=== PATIENT | male | born 2000 | race Hispanic/Latino ===

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

== ENCOUNTER 2023-11-27 02:42 | Emergency (ER) | payer MEDICAID, OTHER ==
[~2023-11-27] VITALS: Ht 170.2 cm; Wt 98.4 kg
[2023-11-27] MEDS ORDERED: MAG-55 PO (03:20)
[2023-11-27] MEDS ORDERED: OMEP40CA21 PO (03:20)
[2023-11-27 03:39] LABS: APPEARANCE,URINE CLEAR (CLEAR); BILIRUBIN,URINE NEGATIVE (NEGATIVE); COLOR,URINE COLORLESS (YELLOW); GLUCOSE, URINE (UA) NEGATIVE (NEGATIVE); KETONES,URINE NEGATIVE (NEGATIVE); LEUKOCYTE ESTERASE ,URINE NEGATIVE Leu/uL (NEGATIVE); NITRATE,URINE NEGATIVE (NEGATIVE); OCCULT BLOOD,URINE NEGATIVE (NEGATIVE); PH,URINE 7.5 (5.0-8.0); PROTEIN,URINE NEGATIVE (NEGATIVE); UROBILINOGEN,URINE 0.2 mg/dL (0.2-1.0)
[2023-11-27 03:40] LABS: ADD UA MICROSCOPIC NO
[2023-11-27 03:46] LABS: BASOPHILS # (AUTO) 0.03 K/uL (0.00-0.20); BASOPHILS % (AUTO) 0.4 % (0.0-5.0); EOSINOPHILS # (AUTO) 0.09 K/uL (0.00-0.70); EOSINOPHILS % (AUTO) 1.3 % (0.0-8.0); HEMATOCRIT 46.1 % (42-54); IMMATURE GRANULOCYTE ABSOLUTE 0.02 K/uL (0-1); LYMPHOCYTES # (AUTO) 1.9 K/uL (1.0-4.8); LYMPHOCYTES % (AUTO) 27.8 % (21.0-51.0); MEAN CORPUSCULAR HEMOGLOBIN 29.7 pg (27.0-33.0); MEAN CORPUSCULAR HGB CONC 33.8 g/dL (32.0-36.0); MEAN CORPUSCULAR VOLUME 87.6 fL (79-99); MONOCYTES # (AUTO) 0.8 K/uL (0.1-1.0); MONOCYTES % (AUTO) 11.5 % (3.0-13.0); NEUTROPHILS % (AUTO) 58.7 % (40.0-77.0); PLATELET COUNT (AUTO) 263 K/uL (130-400); RED BLOOD CELL COUNT(AUTO) 5.26 MIL/uL (4.50-6.20); RED CELL DISTRIBUTION WIDTH 12.8 % (11.0-15.5); WHITE BLOOD COUNT (AUTO) 6.9 K/uL (4.8-10.8)
[2023-11-27 03:59] LABS: INR <= 0.93 (0.85-1.15); PROTHROMBIN TIME 10.3 SEC (9.6-11.6)
[2023-11-27 04:00] LABS: PARTIAL THROMBOPLASTIN TIME 30.8 SEC (26.3-35.5)
[2023-11-27 04:03] LABS: ALBUMIN 4.4 g/dL (3.5-5.0); BILIRUBIN,TOTAL 0.7 mg/dL (0.2-1.0); POTASSIUM 3.8 mmol/L (3.5-5.1); TOTAL PROTEIN, SERUM 7.7 g/dL (6.0-8.3)
[2023-11-27 04:14] LABS: B-TYPE NATRIURETIC PEPTIDE < 5 pg/mL (0-100)
[2023-11-27 04:47] VITALS: BP 144/72; PULSE 71; RESP 18; O2SAT 100
== END 2023-11-27 04:47 | disposition home or self-care (01) ==
LOC: EDH 02:42
DX: K27.9 Peptic ulcer, site unspecified, unspecified as acute or chronic, without hemorrhage or perforation (principal); Z79.899 Other long term (current) drug therapy
CPT/HCPCS: 36415; 71045; 80053; 81003; 82550; 83880; 84484; 85025; 85610; 85730; 93005

== ENCOUNTER 2024-09-23 06:42 | Emergency (ER) | payer SELFPAY ==
[~2024-09-23] VITALS: Ht 170.2 cm; Wt 101.7 kg
[~2024-09-23 06:42] MED LIST: MAG-55 PO; OMEP40CA21 PO
[2024-09-23 07:06] LABS: HEMATOCRIT 46.7 % (42-54); MEAN CORPUSCULAR HEMOGLOBIN 29.1 pg (27.0-33.0); MEAN CORPUSCULAR HGB CONC 32.8 g/dL (32.0-36.0); MEAN CORPUSCULAR VOLUME 88.8 fL (79-99); RED BLOOD CELL COUNT(AUTO) 5.26 MIL/uL (4.50-6.20); RED CELL DISTRIBUTION WIDTH 12.9 % (11.0-15.5); WHITE BLOOD COUNT (AUTO) 9.8 K/uL (4.8-10.8)
[2024-09-23] MEDS: ondanSETRON 4MG INJ IVP ONE (07:08)
[2024-09-23] MEDS: MAG/ALUM/SIMETH 30 ML UDCUP PO ONE (07:08)
[2024-09-23] MEDS: DICYCLOMINE HCL 10 MG/5 ML ML PO ONE (07:08)
[2024-09-23] MEDS: LIDOCAINE HCL 2% VISCOUS 15 ML UDCUP PO ONE (07:08)
[2024-09-23] MEDS: PANTOPrazole 40 MG/VIAL IVP ONE (07:09)
[2024-09-23] MEDS: morPHINE 2 MG SYG IVP ONE (07:09)
[2024-09-23 07:10] VITALS: TEMP 98.8
[2024-09-23 07:19] LABS: CREATININE 0.9 mg/dL (0.5-1.3); POTASSIUM 3.3 mmol/L (3.5-5.1)
[2024-09-23 07:30] LABS: ALBUMIN 3.7 g/dL (3.5-5.0); BILIRUBIN,DIRECT 0.2 mg/dL (0.0-0.3); BILIRUBIN,TOTAL 0.6 mg/dL (0.2-1.0); TOTAL PROTEIN, SERUM 7.5 g/dL (6.0-8.3)
--- NOTE | 2024-09-23 07:38 | ERN ---
General Chief Complaint: Abdominal Pain Stated Complaint: EPIGASTRIC ABDOMINAL PAIN Time Seen by MD: 07:08 Source: patient, family History of Present Illness Initial Comments Patient is a 24-year-old male, coming in complaining of epigastric pain. Patient states that the discomfort began four days ago. This is a states that today the pain improved but still has a discomfort decided to come in to be evaluated. Allergies: Coded Allergies: No Known Allergies (Unverified Allergy, Unknown, 05/04/19) Home Meds Active Scripts Omeprazole (Omeprazole) 40 Mg Capsule.dr, 40 MG PO DAILY, #30 CAP Prov:CHARLEY MARIN MD 11/27/23 Mag Hydrox/Al Hydrox/Simeth (Maalox Maximum Strength Susp) 400 Mg-400 Mg-40 Mg/5 Ml Oral.susp, 20 ML PO QID, #250 ML Prov:CHARLEY MARIN MD 11/27/23 Past Medical History Past Medical History: No Pertinent History Medical History Other: GASTRITIS Past Surgical History: None Family History Family History: HTN Social History Social History: Negative, Lives with family ROS Dictation CONSTITUTIONAL: No chills, no fever, no weakness, no diaphoresis, no malaise. HEAD/FACE: No signs of trauma. EENT: No eye pain, no blurred vision, no tearing, no double vision, no ear pain, no ear discharge, no nose pain, no nasal congestion, no throat pain, no throat swelling, no mouth pain. RESPIRATORY: No cough, no orthopnea, no SOB, no stridor, no wheezing. CARDIOVASCULAR: No chest pain, no edema, no palpitations, no syncope. GASTROINTESTINAL/ABDOMINAL: abdominal pain, no constipation, no diarrhea, no nausea, no vomiting. GENITOURINARY: No abnormal discharge, no dysuria, no frequent urination, no hematuria. No complaints of pain in the genitals. MUSCULOSKELETAL: No back pain, no gout, no joint pain, no joint swelling, no muscle pain, no muscle stiffness, no neck pain. INTEGUMENTARY: No change in color, no change in hair/nails, no dryness, no lesion, no lumps, no rash. NEUROLOGICAL/PSYCH: No anxiety, not depressed, no emotional problem, no headache, no numbness, no pre-existing deficit, no history of seizures, no tremors, no weakness. HEMATOLOGIC/LYMPHATIC: Not anemic, no history of blood clots, no apparent bleeding, no bruising, glands not swollen. All Systems Negative, Except as Noted. Physical Exam Physical Exam Dictation VITAL SIGNS: Reviewed. GENERAL APPEARANCE: Alert, oriented x3, no acute distress, obese. HEAD AND FACE: Non-traumatic. EYES: PERRL, pink conjunctivas, eyelid no trauma, anterior chamber clear. EARS: Pinnas intact and no signs of trauma or erythema. Ear canals clear and no discharge. TMs no erythema. NOSE: No discharge, no bleeding. OROPHARYNX: Mouth normal, teeth no caries, tongue pink. Pharynx clear, no erythema. Tonsils no exudates, no abscesses noted. Mucous membrane moist. NECK: Supple, non-tender, no thyromegaly, no masses, no JVD, no bruits. BREAST: Deferred. CHEST: No tenderness, no crepitus, no paradoxical movement, no retractions. LUNGS: Clear, well-ventilated, symmetric, no rales, no wheezing, no rhonchi, no stridor, good breath sounds bilaterally. HEART: Regular rate, regular rhythm, no murmur, no gallops. VASCULAR: No peripheral edema. ABDOMEN: Soft, positive bowel sounds, nondistended, no guarding, epigastric tenderness on palpation, no rebound, no masses no hepatomegaly, no splenomegaly, no Womack's sign, no hernias. RECTAL: Deferred. GENITAL: Deferred. NEUROLOGICAL: Normal speech, gross motor function intact, gross sensory function intact. MUSCULOSKELETAL: Neck nontender, full range of motion, back nontender, full range of motion. EXTREMITIES: Nontender, full range of motion. SKIN: Color pink, dry, no turgor, no rash, no lacerations, no abrasions, no contusions. LYMPHATICS: Deferred. Results Laboratory and Microbiology Lab and Micro Result Laboratory Tests Test 09/23/24 06:55 White Blood Count 9.8 K/uL (4.8-10.8) Red Blood Count 5.26 MIL/uL (4.50-6.20) Hemoglobin 15.3 g/dL (14.0-18.0) Hematocrit 46.7 % (42-54) Mean Corpuscular Volume 88.8 fL (79-99) Mean Corpuscular Hemoglobin 29.1 pg (27.0-33.0) Mean Corpuscular Hemoglobin Concent 32.8 g/dL (32.0-36.0) Red Cell Distribution Width 12.9 % (11.0-15.5) Platelet Count 237 K/uL (130-400) Mean Platelet Volume 10.3 fL (7.5-10.5) Nucleated Red Blood Cells 0.0 % (0.0-0.19) Sodium Level 142 mmol/L (136-145) Potassium Level 3.3 mmol/L (3.5-5.1) L Chloride Level 103 mmol/L (101-111) Carbon Dioxide Level 32 mmol/L (21-32) Blood Urea Nitrogen 14 mg/dL (7-18) Creatinine 0.9 mg/dL (0.5-1.3) Glomerular Filtration Rate Calc 123 mL/min (>90) Random Glucose 97 mg/dL (70-105) Total Calcium 8.7 mg/dL (8.5-10.1) Total Bilirubin 0.6 mg/dL (0.2-1.0) Direct Bilirubin 0.2 mg/dL (0.0-0.3) Aspartate Amino Transf (AST/SGOT) 39 U/L (10-37) H Alanine Aminotransferase (ALT/SGPT) 93 U/L (12-78) H Alkaline Phosphatase 114 U/L (50-136) Total Protein 7.5 g/dL (6.0-8.3) Albumin 3.7 g/dL (3.5-5.0) Lipase 48 U/L (16-77) Urine Opiates Screen NEGATIVE (NEGATIVE) Urine Barbiturates Screen NEGATIVE (NEGATIVE) Urine Phencyclidine Screen NEGATIVE (NEGATIVE) Urine Amphetamines Screen NEGATIVE (NEGATIVE) Urine Benzodiazepines Screen NEGATIVE (NEGATIVE) Urine Cocaine Screen NEGATIVE (NEGATIVE) Urine Marijuana (THC) Screen NEGATIVE (NEGATIVE) Labs Reviewed?: Yes MDM MDM: Differential diagnosis: Gastritis, GERD, alcohol abuse, Patient is a 24-year-old male coming in to be evaluated for abdominal discomfort. Patient states that the pain began a couple of days ago. Patient does admit to drinking alcohol socially. Laboratory workup negative for acute findings. Mild elevation of liver enzymes counseled patient into avoiding alcohol abuse as this could damage his liver. Patient took a device states he will follow up with the recommendation. Patient will be discharged in stable condition with a diagnosis of gastritis. PPIs with the provided for symptomatic relief. ED Course Orders Procedure Category Date Status Time Morphine 2mg Syg PHA 09/23/24 Complete (Morphine 2mg Syg) 07:00 Ondansetron 4mg Inj PHA 09/23/24 Complete (Zofran 4mg Inj) 07:00 Lidocaine Hcl 2% PHA 09/23/24 Complete Viscous (Lidocaine Hcl 07:00 Mag/Alum/Simeth 30ml PHA 09/23/24 Complete (Maalox Plus 30ml) 07:00 Pantoprazole 40mg Inj PHA 09/23/24 Complete (Protonix 40mg Inj 07:00 Dicyclomine Hcl PHA 09/23/24 Complete (Bentyl 10mg/5ml 07:00 Cbc Without LAB 09/23/24 Complete Differential 06:56 Basic Metabolic Panel LAB 09/23/24 Complete 06:56 Urinalysis Profile LAB 09/23/24 In Process 06:56 Drug Screen Urine LAB 09/23/24 Complete 06:56 Lipase LAB 09/23/24 Complete 07:10 Hepatic Function Panel LAB 09/23/24 Complete 07:10 Potassium Bicarb/Cit PHA 09/23/24 Complete Ac 25meq (K-Lyte Ta 08:00 Current Medications Medications (Trade) Dose Ordered Sig/Carol Route PRN Reason Start Time Stop Time Status Last Admin Dose Admin Al Hydroxide/Mg Hydroxide (MAALox PLUS 30ML) 30 ml ONCE ONCE PO 09/23/24 07:00 09/23/24 07:01 DC 09/23/24 07:08 Dicyclomine HCl (Bentyl 10mg/5ml Syrup) 10 mg ONCE ONCE PO 09/23/24 07:00 09/23/24 07:01 DC 09/23/24 07:08 Lidocaine HCl (Lidocaine HCl 2% Viscous) 10 ml ONCE ONCE PO 09/23/24 07:00 09/23/24 07:01 DC 09/23/24 07:08 Morphine Sulfate (morPHINE 2MG SYG) 2 mg ONCE ONCE IVP 09/23/24 07:00 09/23/24 07:01 DC Ondansetron HCl (zoFRAN 4MG INJ) 4 mg ONCE ONCE IVP 09/23/24 07:00 09/23/24 07:01 DC Pantoprazole Sodium (PROTonix 40MG INJ) 40 mg ONCE ONCE IVP 09/23/24 07:00 09/23/24 07:01 DC 09/23/24 07:09 Potassium Bicarbonate (K-Lyte Tablet Eff 25 Meq Tablet.eff) 25 meq ONCE ONCE PO 09/23/24 08:00 09/23/24 08:01 DC 09/23/24 07:44 Vital Signs Date Time Temp Pulse Resp B/P (MAP) Pulse Ox O2 Delivery O2 Flow Rate FiO2 09/23/24 08:13 71 16 114/68 100 Room Air* 0 21 09/23/24 07:10 98.8 73 14 119/74 100 Room Air* 0 21 09/23/24 07:00 98.8 78 18 110/65 99 Room Air* 0 21 09/23/24 06:44 98.2 74 16 145/49 98 Room Air 0 DX & DISP Disposition: Discharge Departure Impression: Primary Impression: History of peptic ulcer disease Additional Impression: Gastritis Condition: Stable Scripts Pantoprazole Sodium (Protonix) 40 Mg Ectab 1 TAB PO DAILY for 30 Days, #30 TAB 0 Refills Prov: MICHELE MCKAY MD 09/23/24 Additional Instructions: FOLLOW-UP WITH PRIMARY CARE PROVIDER IN 1 TO 2 DAYS. TAKE MEDICATIONS DIRECTED HERE IN THE EMERGENCY ROOM. OKAY TO CONTINUE HOME MEDICATIONS UNLESS OTHERWISE DISCUSSED DURING YOUR VISIT IN THE EMERGENCY ROOM TODAY. RETURN TO YOUR NEAREST EMERGENCY ROOM IF SYMPTOMS WORSEN OR IF THERE IS NO IMPROVEMENT. CALL 911 IF YOU NEED IMMEDIATE ASSISTANCE. TAKE TYLENOL [id number] NEEDED AND IF NO CONTRAINDICATIONS ARE PRESENT. INCREASE ORAL HYDRATION. A WOUND CULTURE OR URINE CULTURE WAS ORDERED HERE IN THE EMERGENCY ROOM DEPARTMENT PLEASE FOLLOW-UP WITH PRIMARY CARE PROVIDER AND ADVISE THEM TO GET REPEAT PORTS FROM OUR FACILITY. IF YOU HAD ANY FAVIOLA WRAP/SPLINTS THAT WERE APPLIED HERE, PLEASE DO NOT REMOVE THEM UNTIL YOU SEE YOUR PRIMARY CARE OR SPECIALTY. Referrals: Referrals: SELF,REFERRAL (PCP) JAKI MARY MD Time of Disposition: 08:40 MICHELE MCKAY MD Sep 23, 2024 07:38
[2024-09-23] MEDS: PoTASSium BIcarbonate/CIT AC 25 MEQ TABLET.EFF PO ONE (07:44)
[2024-09-23 08:13] VITALS: BP 114/68; PULSE 71; RESP 16; O2SAT 100
[2024-09-23 08:28] LABS: APPEARANCE,URINE CLEAR (CLEAR); BILIRUBIN,URINE NEGATIVE (NEGATIVE); COLOR,URINE LIGHT-YELLOW (YELLOW); GLUCOSE, URINE (UA) NEGATIVE (NEGATIVE); KETONES,URINE NEGATIVE (NEGATIVE); LEUKOCYTE ESTERASE ,URINE NEGATIVE Leu/uL (NEGATIVE); NITRATE,URINE NEGATIVE (NEGATIVE); OCCULT BLOOD,URINE NEGATIVE (NEGATIVE); PROTEIN,URINE NEGATIVE (NEGATIVE); UROBILINOGEN,URINE 0.2 mg/dL (0.2-1.0)
[2024-09-23 08:36] LABS: AMPHET/METH SCREEN,URINE NEGATIVE (NEGATIVE); BARBITURATE SCREEN, URINE NEGATIVE (NEGATIVE); BENZODIAZEPINES SCREEN,URINE NEGATIVE (NEGATIVE); CANNABINOID SCREEN,URINE NEGATIVE (NEGATIVE); COCAINE SCREEN,URINE NEGATIVE (NEGATIVE); OPIATE SCREEN,URINE NEGATIVE (NEGATIVE); PHENCYCLIDINE SCREEN,URINE NEGATIVE (NEGATIVE)
[2024-09-23] MEDS ORDERED: PANT40TA55 PO (08:40)
[2024-09-23 09:17] LABS: ADD UA MICROSCOPIC NO
== END 2024-09-23 08:45 | disposition home or self-care (01) ==
LOC: EDH 06:42
DX: K29.70 Gastritis, unspecified, without bleeding (principal); Z79.899 Other long term (current) drug therapy; Z87.11 Personal history of peptic ulcer disease; Z87.19 Personal history of other diseases of the digestive system
CPT/HCPCS: 99284; 96374; 80076; 80048; 80305; 83690; 85027; 81003; 36415; J2270; J2405; J2470

== ENCOUNTER 2024-12-22 20:56 | Emergency (ER) | payer SELFPAY ==
[~2024-12-22] VITALS: Ht 170.2 cm; Wt 97.5 kg
[~2024-12-22 20:56] MED LIST changes: +PANT40TA55 PO
--- NOTE | 2024-12-22 20:59 | NUR ---
UA CUP PROVIDED
[2024-12-22 21:14] LABS: APPEARANCE,URINE CLEAR (CLEAR); BILIRUBIN,URINE NEGATIVE (NEGATIVE); COLOR,URINE YELLOW (YELLOW); GLUCOSE, URINE (UA) NEGATIVE (NEGATIVE); KETONES,URINE NEGATIVE (NEGATIVE); LEUKOCYTE ESTERASE ,URINE NEGATIVE Leu/uL (NEGATIVE); NITRATE,URINE NEGATIVE (NEGATIVE); OCCULT BLOOD,URINE NEGATIVE (NEGATIVE); PH,URINE 6.5 (5.0-8.0); PROTEIN,URINE 30 mg/dL (NEGATIVE)
[2024-12-22 21:15] LABS: ADD UA MICROSCOPIC YES
[2024-12-22 21:18] LABS: BACTERIA,URINE RARE /HPF (None Seen); MUCUS,URINE FEW LPF (None Seen); SQUAMOUS EPITHELIAL CELL,UR RARE /HPF (0-2); WBC,URINE 0-1 /HPF (0-1)
--- NOTE | 2024-12-22 22:04 | HMCIMG ---
ULTRASOUND OF THE TESTICLES ULTRASOUND ABD VASCULAR LIMITED INDICATION: Scrotal pain COMPARISON: None FINDINGS: The right testicle measures 4.5 x 2.1 x 2.3 cm. It is normal in echogenicity without mass. No hydrocele or varicocele demonstrated. Right epididymal head measures 0.8 cm. Right epididymal body and tail are obscured by overlying bowel gas. The left testicle measures 4.1 x 2.1 x 2.7 cm. It is normal in echogenicity without mass. Very small left varicocele without hydrocele demonstrated. Left epididymal head measures 0.8 cm. Color Doppler flow is normal throughout the both testicles.Spectral Doppler analysis demonstrates a normal waveform pattern in regards to both testicles. IMPRESSION: Limitations as reported. Very small left varicocele.
[2024-12-22] MEDS ORDERED: IBUP-2077 PO (22:17)
--- NOTE | 2024-12-22 22:18 | ERN ---
ED Note History of Present Illness Stated Complaint: TESTICULAR PAIN Chief Complaint: Testicular Injury/Pain Time Seen by MD: 20:58 Time Seen by Midlevel: 22:10 Dictation: PATIENT IS A 24-YEAR-OLD MALE COMPLAINING OF LEFT TESTICULAR PAIN WORSE WHEN HE WALKS FOR THE LAST TWO DAYS STARTING WEDNESDAY. HE DENIES FEVER CHILLS NAUSEA VOMITING DENIES ANY DISCHARGE AT THIS TIME NO PRIMARY CARE DOCTOR AND TOOK SOME TYLENOL EARLIER TODAY FOR PAIN. Allergies: Coded Allergies: No Known Allergies (Unverified Allergy, Unknown, 05/04/19) Home Meds Active Scripts Pantoprazole Sodium (Protonix) 40 Mg Ectab, 1 TAB PO DAILY for 30 Days, #30 TAB 0 Refills Prov:MICHELE MCKAY MD 09/23/24 Omeprazole (Omeprazole) 40 Mg Capsule.dr, 40 MG PO DAILY, #30 CAP Prov:CHARLEY MARIN MD 11/27/23 Mag Hydrox/Al Hydrox/Simeth (Maalox Maximum Strength Susp) 400 Mg-400 Mg-40 Mg/5 Ml Oral.susp, 20 ML PO QID, #250 ML Prov:CHARLEY MARIN MD 11/27/23 Past Medical History Past Medical History: No Pertinent History Additional Past Medical Hx: GASTRITIS Surgical History: None Family History: HTN Social History: Negative, Lives with family RN Note Reviewed/Agreed w/PFSH: Yes Review of System Dictation CONSTITUTIONAL: NEGATIVE EXCEPT FOR HPI HEAD/FACE: NEGATIVE EXCEPT FOR HPI EENT: NEGATIVE EXCEPT FOR HPI RESPIRATORY: NEGATIVE EXCEPT FOR HPI GASTROINTESTINAL/ABDOMINAL: NEGATIVE EXCEPT FOR HPI GENITOURINARY: NEGATIVE EXCEPT FOR HPI LEFT TESTICULAR PAIN SINCE WEDNESDAY MUSCULOSKELETAL: NEGATIVE EXCEPT FOR HPI INTEGUMENTARY: NEGATIVE EXCEPT FOR HPI NEUROLOGICAL/PSYCH: NEGATIVE EXCEPT FOR HPI HEMATOLOGIC/LYMPHATIC: NEGATIVE EXCEPT FOR HPI ALL SYSTEMS NEGATIVE, EXCEPT NOTED ABOVE. 13 POINT REVIEW OF SYSTEMS ASSESSED AND ALL NEGATIVE EXCEPT FOR ABOVE. Initial Vital Sign VS Vital Signs Date Time Temp Pulse Resp B/P (MAP) Pulse Ox O2 Delivery O2 Flow Rate FiO2 12/22/24 20:57 98.4 80 20 158/82 100 Room Air Physical Exam Dictation VITAL SIGNS REVIEWED GENERAL APPEARANCE: ALERT, ORIENTED X 3, MILD ACUTE DISTRESS, WELL DEVELOPED, NOURISHED. HEAD AND FACE: NON-TRAUMATIC. EYES: PERRL, PINK CONJUNCTIVAS, EYELID NO TRAUMA, ANTERIOR CHAMBER WITH ARCUS SENILIS. EARS: PINNAS INTACT AND NO SIGNS OF TRAUMA OR ERYTHEMA EAR CANALS CLEAR AND NO DISCHARGE TM NO ERYTHEMA NOSE: NO DISCHARGE, NO BLEEDING. OROPHARYNX: MOUTH NORMAL, TONGUE PINK, PHARYNX CLEAR,NO ERYTHEMA, TONSILS NO EXUDATES, NO ABSCESSES NOTED, MUCOUS MEMBRANE MOIST NECK: SUPPLE, NON-TENDER, NO THYROMEGALY, NO MASSES, NO JVD, NO BRUITS BREAST:DEFERRED CHEST:NO TENDERNESS, NO CREPITUS, NO PARADOXICAL MOVEMENT, NO RETRACTIONS LUNGS:CLEAR, WELL-VENTILATED, SYMMETRIC, NO RALES, NO WHEEZING, NO RHONCHI, NO STRIDOR, GOOD BREATH SOUNDS BILATERALLY HEART: REGULAR RATE, REGULAR RHYTHM, NO MURMUR, NO GALLOPS VASCULAR: NO PERIPHERAL EDEMA, ABDOMEN: SOFT, POSITIVE BOWEL SOUNDS, NONDISTENDED, NO GUARDING, NONTENDER, NO REBOUND, NO MASSES NO HEPATOMEGALY, NO SPLENOMEGALY, NO GODOY'S SIGN, NO HERNIAS. RECTAL: DEFERRED GENITAL: PATIENT IS HOODED, BILATERAL TESTICLES ARE DESCENDED, NO MASSES ON PAL PATION. POSITIVE CREMASTERIC REFLEX BILATERALLY NEUROLOGICAL: NORMAL SPEECH, MOTOR FUNCTION INTACT, SENSORY FUNCTION INTACT MUSCULOSKELETAL: NECK NONTENDER, FULL RANGE OF MOTION, BACK NONTENDER, FULL RANGE OF MOTION, EXTREMITIES: NONTENDER, FULL RANGE OF MOTION SKIN: COLOR PINK, DRY, NO TURGOR, NO RASH, NO LACERATIONS, NO ABRASIONS, NO CONTUSIONS. LYMPHATIC: DEFERRED Results (Laboratory/Radiology) Laboratory/Radiology Laboratory Tests Test 12/22/24 21:00 Urine Color YELLOW (YELLOW) Urine Appearance CLEAR (CLEAR) Urine pH 6.5 (5.0-8.0) Urine Specific [place] 1.042 (1.001-1.031) Urine Protein 30 mg/dL (NEGATIVE) H Urine Glucose (UA) NEGATIVE mg/dL (NEGATIVE) Urine Ketones NEGATIVE mg/dL (NEGATIVE) Urine Occult Blood NEGATIVE (NEGATIVE) Urine Nitrate NEGATIVE (NEGATIVE) Urine Bilirubin NEGATIVE mg/dL (NEGATIVE) Urine Urobilinogen 2.0 mg/dL (0.2-1.0) H Urine Leukocyte Esterase NEGATIVE Isaura/uL Urine RBC 2-5 /HPF (0-1) H Urine WBC 0-1 /HPF (0-1) Urine Squamous Epithelial Cells RARE /HPF (0-2) Urine Bacteria RARE /HPF (None Seen) INDICATION: Scrotal pain COMPARISON: None FINDINGS: The right testicle measures 4.5 x 2.1 x 2.3 cm. It is normal in echogenicity without mass. No hydrocele or varicocele demonstrated. Right epididymal head measures 0.8 cm. Right epididymal body and tail are obscured by overlying bowel gas. The left testicle measures 4.1 x 2.1 x 2.7 cm. It is normal in echogenicity without mass. Very small left varicocele without hydrocele demonstrated. Left epididymal head measures 0.8 cm. Color Doppler flow is normal throughout the both testicles.Spectral Doppler analysis demonstrates a normal waveform pattern in regards to both testicles. IMPRESSION: Limitations as reported. Very small left varicocele. Labs Reviewed?: Yes ED Course ED Course Orders Procedure Category Date Status Time Urinalysis Profile LAB 12/22/24 Complete 20:59 Us Scrotum & Contents US 12/22/24 Resulted 20:59 Ibuprofen 800 Mg Tab PHA 12/22/24 Verified (Motrin) 22:30 Vital Signs Date Time Temp Pulse Resp B/P (MAP) Pulse Ox O2 Delivery O2 Flow Rate FiO2 12/22/24 20:57 98.4 80 20 158/82 100 Room Air 2215/PATIENT WILL BE DISCHARGED HOME FROM THE EMERGENCY ROOM WAITING ROOM WITH A LEFT VARICOCELE. URINE WAS CLEAR PATIENT WILL REFERRED TO UROLOGY Medical Decision Making MDM MEDICAL DECISION-MAKING BASED ON URINALYSIS AND ULTRASOUND OF SCROTUM DUE TO TESTICULAR PAIN PATIENT HAS A SMALL LEFT VARICOCELE URINALYSIS WAS CLEAR DISCHARGED HOME WITH PAIN MANAGEMENT AND REFERRED TO DX & DISP Disposition: Discharge Departure Impression: Primary Impression: Left varicocele Additional Impression: Left testicular pain Condition: Stable Scripts Ibuprofen (Ibuprofen 800 mg Tab) 800 Mg Tab 800 MG PO Q8H PRN for fever or pain, #30 TAB 0 Refills Prov: ERLIN SIN INFRASTRUCTURE DESIGN ENGINEER 12/22/24 Additional Instructions: FOLLOW-UP WITH PRIMARY CARE PROVIDER IN 1 TO 2 DAYS. TAKE MEDICATIONS DIRECTED HERE IN THE EMERGENCY ROOM. OKAY TO CONTINUE HOME MEDICATIONS UNLESS OTHERWISE DISCUSSED DURING YOUR VISIT IN THE EMERGENCY ROOM TODAY. RETURN TO YOUR NEAREST EMERGENCY ROOM IF SYMPTOMS WORSEN OR IF THERE IS NO IMPROVEMENT. CALL 911 IF YOU NEED IMMEDIATE ASSISTANCE. TAKE TYLENOL OR MOTRIN [id number] NEEDED AND IF NO CONTRAINDICATIONS ARE PRESENT. INCREASE ORAL HYDRATION. A WOUND CULTURE OR URINE CULTURE WAS ORDERED HERE IN THE EMERGENCY ROOM DEPARTMENT PLEASE FOLLOW-UP WITH PRIMARY CARE PROVIDER AND ADVISE THEM TO GET REPEAT PORTS FROM OUR FACILITY. IF YOU HAD ANY FAVIOLA WRAP/SPLINTS THAT WERE APPLIED HERE, PLEASE DO NOT REMOVE THEM UNTIL YOU SEE YOUR PRIMARY CARE OR SPECIALTY. TAKE IBUPROFEN NEEDED FOR PAIN., CALL UROLOGIST FOR APPOINTMENT IN THE NEXT 2-3 DAYS Referrals: SELF,REFERRAL (PCP) CHANDA PATEL MD Time of Disposition: 22:16 I have reviewed the case, and I agree with, Diagnosis and Plan ERLIN SIN INFRASTRUCTURE DESIGN ENGINEER Dec 22, 2024 22:18
[2024-12-22 22:24] VITALS: BP 134/79; PULSE 80; RESP 16; TEMP 96.3; O2SAT 99
[2024-12-22] MEDS: ibuPROFEN 800 MG TAB PO ONE (22:31)
== END 2024-12-22 22:32 | disposition home or self-care (01) ==
LOC: EDH 20:56
DX: I86.1 Scrotal varices (principal); N50.82 Scrotal pain; Z79.899 Other long term (current) drug therapy
CPT/HCPCS: 76870; 81001; 99284

== ENCOUNTER 2025-01-01 04:57 | Emergency (ER) | payer SELFPAY ==
[~2025-01-01] VITALS: Ht 170.2 cm; Wt 99.8 kg
[~2025-01-01 04:57] MED LIST changes: +IBUP-2077 PO
--- NOTE | 2025-01-01 05:32 | NUR ---
PT EATING SNACK FROM VENDING MACHINE AND TOLERATING WELL
[2025-01-01 05:51] VITALS: BP 150/77; PULSE 74; RESP 18; TEMP 98; O2SAT 100
[2025-01-01] MEDS ORDERED: CLIN-141 PO (06:08)
--- NOTE | 2025-01-01 06:09 | ERN ---
General Chief Complaint: Tooth Ache/Pain Stated Complaint: TOOTHACHE Time Seen by MD: 05:51 History of Present Illness Initial Comments Has a toothache on his right lower jaw and he noticed increased swelling in his right cheek with a slight tinge of redness. He is wondering if it is infected and if he should get antibiotics. Allergies: Coded Allergies: No Known Allergies (Unverified Allergy, Unknown, 05/04/19) Home Meds Active Scripts Ibuprofen (Ibuprofen 800 mg Tab) 800 Mg Tab, 800 MG PO Q8H PRN for fever or pain, #30 TAB 0 Refills Prov:ERLIN SIN NP 12/22/24 Pantoprazole Sodium (Protonix) 40 Mg Ectab, 1 TAB PO DAILY for 30 Days, #30 TAB 0 Refills Prov:MICHELE MCKAY MD 09/23/24 Omeprazole (Omeprazole) 40 Mg Capsule.dr, 40 MG PO DAILY, #30 CAP Prov:CHARLEY MARIN MD 11/27/23 Mag Hydrox/Al Hydrox/Simeth (Maalox Maximum Strength Susp) 400 Mg-400 Mg-40 Mg/5 Ml Oral.susp, 20 ML PO QID, #250 ML Prov:CHARLEY MARIN MD 11/27/23 Past Medical History Past Medical History: No Pertinent History Medical History Other: GASTRITIS Past Surgical History: None Family History Family History: HTN Social History Social History: Negative, Lives with family Constitutional: (-) chills, (-) diaphoresis, (-) fever, (-) malaise, (-) weakness, (-) other documentation EENTM: (+) tooth pain; (-) eye pain, (-) blurred vision, (-) tearing, (-) double vision, (-) ear pain, (-) ear discharge, (-) nose pain, (-) nose congestion, (-) throat pain, (- ) Throat swelling, (-) mouth pain, (-) mouth swelling, (-) other documentation Respiratory: (-) cough, (-) orthopnea, (-) short of breath, (-) stridor, (-) wheezing, (-) other documentation Cardiovascular: (-) chest pain, (-) edema, (-) palpitations, (-) syncope, (-) dyspnea on exertion, (-) other documentation Gastrointestinal/Abdominal: (-) nausea, (-) vomiting, (-) diarrhea, (-) abdominal pain, (-) abdominal distention, (-) constipation, (-) rectal bleeding, (-) dark stool/melena, (-) other documentation Genitourinary: (-) penile discharge, (-) dysuria, (-) frequency, (-) hematuria, (-) pain, (-) other documentation Musculoskeletal: (-) Neck pain, (-) back pain, (-) Flank Pain, (-) joint pain, (-) joint swelling, (-) muscle pain, (-) muscle stiffness, (-) gout, (-) other documentation Skin: (-) laceration, (-) contusion, (-) abrasion, (-) abscess, (-) rash, (-) change in color, (-) change in hair, (-) change in nails, (-) diaphoresis, (-) dryness, (-) other documentation Physical Exam General Appearance: (+) no apparent distress Orientation: (+) oriented x 3 Head/Face Trauma: No Eye: bilateral eye normal inspection, bilateral eye PERRL, bilateral eye EOMI Ear, Nose, Throat: (+) hearing grossly normal, (+) normal ENT inspection, (+) m oist mucous membraine Neck: (+) normal inspection, (+) supple, (+) no JVD Respiratory: (+) chest non-tender, (+) lungs clear Heart: (+) regular, (+) no gallop MDM Patient does indeed have slight amount of swelling and warmth to his right mandible. He needs to see his dentist I will prescribe him a short course of antibiotics. ED Course Vital Signs Date Time Temp Pulse Resp B/P (MAP) Pulse Ox O2 Delivery O2 Flow Rate FiO2 01/01/25 05:51 98.1 74 18 150/77 100 Room Air* 0 21 01/01/25 04:58 98.1 75 16 151/82 100 Room Air DX & DISP Disposition: Discharge Departure Impression: Primary Impression: Dental abscess Condition: Stable Scripts Clindamycin HCl (Clindamycin HCl) 300 Mg Capsule 1 CAP PO QID for 10 Days, #40 CAP 0 Refills Prov: YOAN RAO MD 01/01/25 Additional Instructions: Return if the redness and swelling gets worse while you are taking this antibiotic or if you start to have trouble breathing and can not eat or drink. Please see a dentist. Referrals: SELF,REFERRAL (PCP) YOAN RAO MD Jan 01, 2025 06:09
== END 2025-01-01 06:14 | disposition home or self-care (01) ==
LOC: EDH 04:57
DX: K04.7 Periapical abscess without sinus (principal); Z79.899 Other long term (current) drug therapy
CPT/HCPCS: 99284